=== PATIENT | female | born 1970 | race Caucasian/White ===

== ENCOUNTER → 2016-12-03 | Outpatient (CLI) | payer OTHER ==
--- NOTE | 2016-12-03 09:06 | USB ---
Reason for exam: clinical finding. History: Took hormonal contraceptives for 1 year. Indicated problem(s): palpable abnormality in the left breast. Physical Findings: Nurse Summary: palpable 8 o'clock mobile 0.5cm, generalized thickening 1-2 o'clock (nurse esvin). US Breast LT Left breast ultrasound includes all four quadrants, the retroareolar region and axilla. Finding demonstrates a 1.7 x 0.7 x 1.1cm cystic lesion at 12 o'clock, a 1.3 x 0.4 x 0.9cm cystic lesion at the nipple and a 0.1 x 0.2 x 0.3cm lesion too small to characterize at 10 o'clock. These results were verbally communicated with the patient and result sheet given to the patient on 12/03/16. ASSESSMENT: Probably benign, BI-RAD 3 RECOMMENDATION: Ultrasound of both breasts in 6 months.
== END | disposition home or self-care (01) ==
LOC: RADUSWWP 08:11
PROVIDERS: ATTEND Family Medicine
DX: N60.02 Solitary cyst of left breast (principal)

== ENCOUNTER → 2017-04-30 | Outpatient (CLI) | payer OTHER ==
--- NOTE | 2017-04-30 16:12 | XR ---
EXAMINATION TYPE: XR lumbosacral spine min 4V DATE OF EXAM: 04/30/2017 COMPARISON: NONE HISTORY: Low back pain, fall TECHNIQUE: 5 view lumbar spine FINDINGS: Disc height and vertebral body heights are preserved. Alignment is normal. No spondylolytic defects are evident. There 5 lumbar-type tubal bodies. The pedicles are intact. IMPRESSION: 1. Unremarkable 5 view lumbar spine
== END | disposition home or self-care (01) ==
LOC: RADXRYALE 15:21
PROVIDERS: ATTEND Physician Assistant Medical
DX: M54.40 Lumbago with sciatica, unspecified side (principal); W10.8XXA Fall (on) (from) other stairs and steps, initial encounter
CPT/HCPCS: 72110

== ENCOUNTER → 2018-03-30 | Outpatient (CLI) | payer OTHER ==
--- NOTE | 2018-04-01 10:50 | MM ---
Reason for exam: screening (asymptomatic). Last mammogram was performed 1 year and 11 months ago. History: Took hormonal contraceptives for 1 year. Physical Findings: A clinical breast exam by your physician is recommended on an annual basis and results should be correlated with mammographic findings. MG 3D Screening Mammo W/Cad Bilateral CC and MLO view(s) were taken. XCCL view(s) were taken of the right breast. Prior study comparison: May 13, 2016, bilateral MG 3d screening mammo w/cad. There is chronic nodularity in the left breast. No significant changes when compared with prior studies. ASSESSMENT: Negative, BI-RAD 1 RECOMMENDATION: Routine screening mammogram of both breasts in 1 year.
== END | disposition home or self-care (01) ==
LOC: RADMAMWWP 13:11
PROVIDERS: ATTEND Family Medicine
DX: Z12.31 Encounter for screening mammogram for malignant neoplasm of breast (principal)
CPT/HCPCS: 77063; 77067

== ENCOUNTER → 2019-12-07 | Outpatient (CLI) | payer BC ==
--- NOTE | 2019-12-07 14:33 | XR ---
EXAMINATION TYPE: XR finger RT DATE OF EXAM: 12/07/2019 COMPARISON: NONE HISTORY: Crush injury of the distal phalanx of the right ring finger. TECHNIQUE: 2 views of the right fourth digit/ring finger were obtained. FINDINGS: Faint nondisplaced mildly comminuted fracture of the distal tuft of the fourth phalanx of t he right hand is subtly seen. Mild overlying soft tissue swelling. No radiopaque foreign body. IMPRESSION: Subtle nondisplaced, mildly comminuted fracture of the distal tuft of the fourth phalanx of the right hand.
== END | disposition home or self-care (01) ==
LOC: RADXRYALE 14:00
PROVIDERS: ATTEND Physician Assistant Medical
DX: S62.634A Displaced fracture of distal phalanx of right ring finger, initial encounter for closed fracture (principal)

== ENCOUNTER → 2020-10-25 | Outpatient (CLI) | payer BC ==
--- NOTE | 2020-10-25 12:47 | MM ---
Reason for exam: screening (asymptomatic). Last mammogram was performed 2 years and 7 months ago. History: Took hormonal contraceptives for 1 year. Physical Findings: A clinical breast exam by your physician is recommended on an annual basis and results should be correlated with mammographic findings. MG 3D Screening Mammo W/Cad Bilateral CC and MLO view(s) were taken. Prior study comparison: March 30, 2018, bilateral MG 3d screening mammo w/cad. May 13, 2016, bilateral MG 3d screening mammo w/cad. The breast tissue is extremely dense which could obscure a lesion on mammography. Finding: There is a 10 mm obscured round mass in the outer quadrant, anterior middle position of the right breast on CC 16/49 and MLO 16/53. There is a chronic nodularity in the left breast. New nodularity left anterior breast on MLO 19/55 and CC 19/52. New finding since March 30, 2018 and May 13, 2016. ASSESSMENT: Incomplete: need additional imaging evaluation, BI-RAD 0 RECOMMENDATION: Ultrasound of both breasts. [facility] will attempt to contact patient to return for ultrasound.
== END | disposition home or self-care (01) ==
LOC: RADMAMWWP 07:19
PROVIDERS: ATTEND Family Medicine
DX: Z12.31 Encounter for screening mammogram for malignant neoplasm of breast (principal)
CPT/HCPCS: 77063; 77067

== ENCOUNTER → 2020-11-03 | Outpatient (CLI) | payer BC ==
--- NOTE | 2020-11-03 10:33 | USB ---
Reason for exam: additional evaluation requested from abnormal screening. History: Took hormonal contraceptives for 1 year. Physical Findings: Nurse did not find any significant physical abnormalities on exam. US Breast Workup Limited [place] Technologist: Josefina Maravilla Right limited breast ultrasound including focal area of concern, retroareolar and axilla demonstrates a 0.9 x 0.9 x 0.6cm cystic lesion at 10 o'clock, likely mammographic correlate, a 0.5 x 0.5 x 0.2cm cystic lesion at 10 o'clock with internal echoes/debris and a 0.4 x 0.4 x 0.3cm cystic lesion at 11 o'clock. Left limited breast ultrasound including focal area of concern, retroareolar and axilla demonstrates a 0.7 x 0.6 x 0.6cm cystic lesion at 3 o'clock, a 0.6 x 0.5 x 0.5cm cystic lesion at 1 o'clock and a 0.4 x 0.3 x 0.3cm cystic lesion at 11 o'clock. Right scanned 7-11 o'clock, left scanned subareolar and periareolar. These results were verbally communicated with the patient and result sheet given to the patient on 11/03/20. ASSESSMENT: Probably benign, BI-RAD 3 RECOMMENDATION: Follow-up diagnostic mammogram of both breasts in 1 year.
== END | disposition home or self-care (01) ==
LOC: RADUSWWP 08:57
PROVIDERS: ATTEND Family Medicine
DX: N60.11 Diffuse cystic mastopathy of right breast (principal); N60.12 Diffuse cystic mastopathy of left breast

== ENCOUNTER → 2022-10-17 | Outpatient (CLI) | payer BC ==
--- NOTE | 2022-10-17 11:08 | XR ---
EXAMINATION TYPE: XR shoulder complete LT DATE OF EXAM: 10/17/2022 CLINICAL HISTORY: pain COMPARISON: NONE TECHNIQUE: Three views of the left shoulder are obtained. FINDINGS: There is no acute fracture/dislocation evident. The acromioclavicular and glenohumeral jessie int spaces appear within normal limits. The visualized ribs are intact and unremarkable. IMPRESSION: 1. There is no acute fracture or dislocation. ICD 10 NO FRACTURE, INITIAL EVALUATION
== END | disposition home or self-care (01) ==
LOC: RADXRYALE 10:30
PROVIDERS: ATTEND Physician Assistant
DX: M25.512 Pain in left shoulder (principal)

== ENCOUNTER → 2022-11-22 | Outpatient (CLI) | payer BC ==
--- NOTE | 2022-11-25 18:32 | MM ---
Reason for Exam: Screening (asymptomatic). Last mammogram was performed 2 year(s) and 1 month(s) ago. Patient History: Menarche at age 14. First Full-Term at age 19. Hysterectomy at age 42. Patient used Hormonal Contraceptives for 1 year. Risk Values: Linda 5 year model risk: 0.7%. NCI Lifetime model risk: 6.4%. Prior Study Comparison: 05/13/2016 Bilateral Screening Mammogram, [facility]. 03/30/2018 Bilateral Screening Mammogram, [facility]. 10/25/2020 Bilateral Screening Mammogram, [facility]. Tissue Density: The breast tissue is heterogeneously dense. This may lower the sensitivity of mammography. Findings: Analyzed By CAD. Chronic underlying nodularity left breast becomes more apparent on the 3-D images. There is no suspicious group of microcalcifications or new suspicious mass in either breast. Overall Assessment: Benign, BI-RAD 2 Management: Screening Mammogram of both breasts in 1 year. . Patient should continue monthly self-breast exams. A clinical breast exam by your physician is recommended on an annual basis. This exam should not preclude additional follow-up of suspicious palpable abnormalities. Note on Linda scores and lifetime risk: 1. A Linda score greater than 3% is considered moderate risk. If this is the case, consider specialist referral to assess eligibility for a risk reducing agent. 2. If overall lifetime risk for the development of breast cancer is 20% or higher, the patient may qualify for future screening with alternating mammogram and breast MRI. Electronically signed and approved by: Elena Pete M.D. Radiologist
== END | disposition home or self-care (01) ==
LOC: RADMAMWWP 07:16
PROVIDERS: ATTEND Family Medicine
DX: Z12.31 Encounter for screening mammogram for malignant neoplasm of breast (principal)
CPT/HCPCS: 77063; 77067